=== PATIENT | male | born 1995 | race Two or more races ===

== ENCOUNTER 2023-02-23 20:24 | Emergency (ER) | payer OTHER ==
[~2023-02-23] VITALS: Ht 175.3 cm; Wt 94.5 kg
[2023-02-23 20:44] VITALS: TEMP 98.7
[2023-02-23] MEDS ORDERED: AMOX1TAB16 PO (22:22)
[2023-02-23] MEDS ORDERED: IBUP-1492 PO (22:22)
[2023-02-23] MEDS ORDERED: OxyCODONE HCL 5 MG IR TABLET PO ONE (22:30)
[2023-02-23] MEDS ORDERED: AMOX TR/POT CLAV 875 MG/125 MG TABLET PO ONE (22:30)
[2023-02-23 22:56] VITALS: BP 137/79; PULSE 62; RESP 15
== END 2023-02-23 23:00 | disposition home or self-care (01) ==
LOC: EMS 20:25
DX: K08.89 Other specified disorders of teeth and supporting structures (principal); F12.90 Cannabis use, unspecified, uncomplicated
CPT/HCPCS: 99283